=== PATIENT | male | born 1945 | race Caucasian/White ===

== ENCOUNTER 2019-09-01 07:02 | Day surgery (SDC) | payer MEDICARE, OTHER, SELFPAY ==
--- NOTE | 2019-08-31 19:34 | PM.PREOP ---
Pre-operative Note Interval Note History & Physical reviewed/Exam performed by Physician: Yes Changes to H&P: No
--- NOTE | 2019-09-01 07:19 | PM.OP.1 ---
Operative Date/Time/Diagnoses Date of procedure: 09/01/19 Time of procedure: 07:45 Procedure & Clinicians Procedure: Preoperative diagnoses: 1. Left nuclear sclerotic cataract 2. Astigmatism which is to be corrected with a toric intraocular lens implant. 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 4. Hypertension. 5. Epiretinal membrane. Postoperative diagnoses: 1. Cataract removal with phacoemulsification with toric posterior chamber intraocular lens implant placed. Procedure: Phacoemulsification with posterior chamber toric intraocular lens implant. Surgeon: Daniela Traylor MD Complications: None Specimen: None Implant: [id number] [place] 176 Blood loss: None Anesthesia: Retrobulbar with monitored standby Description of procedure: Patient presents with a complaint of decreased vision due to cataract which is affecting activities of daily living especially driving. The patient wants surgery to improve vision and astigmatism. He is higher risk due to the previous scleritis with oral prednisone for some sometimes several years ago. The patient was taken to the operating room and proparacaine drops placed. Indelible ink rogers were placed at the 90 and 180 degree meridian. The patient was placed on the operating room table and given IV sedation. A retrobulbar block insert consisting of 6 cc of 2% xylocaine without epinephrine mixed half and half with 0.5% Marcaine with 1 cc of hyaluronidase added is placed between the medial and lateral 1/3 of the inferior orbital rim. The eye is manually massaged for 30 sec, prepped using Betadine solution, and draped in the usual sterile fashion. Temporal approach was made, a 1 mm side-port incision was made 90? from the proposed corneal wound. Phenylephrine 1.5% mixed with 1% xylocaine 0.2 cc was placed into the anterior chamber. Viscoat followed by Camelia was then placed. A 2.6 mm clear incision with a 2.6 mm blade was placed at the 170 degree meridian. A 360 degree capsulorrhexis style capsulotomy was then performed with a cystitome needle on a [place]. Hydrodelineation and hydrodissection were performed. The phacoemulsification unit is introduced, and sculpting used to groove the central lens. It is then removed in chopping mode. Epi nucleus is removed with epinuclear mode and irrigation aspiration was used to remove the peripheral cortex. The posterior capsule is polished. The intraocular lens is selected, inspected, power confirmed, and placed in the posterior chamber at the desired meridian of 176 degrees. The pupil was not constricted. The wound was stromally hydrated and tested for leaks, there was none and it was left sutureless. Vigamox 0.1 cc was placed into the anterior chamber. Kenalog 0.2 cc was placed in the superior subconjunctival space. A drop of antibiotic and was placed and the eye was patched and shielded. The patient was stable and returned to the recovery room in excellent condition. Dictated by: Daniela Traylor MD Copy to: [facility]
[2019-09-01] MEDS: PROPARACAINE 0.5% OPHTH SOL 2 DROPS EYE-OP (07:21)
[2019-09-01] MEDS: CATARACT EYE COMPOUND (10 DROPS/SYRINGE) 3 DROPS EYE-OP ×6 (07:23→07:56)
[2019-09-01 07:28] VITALS: BP 159/88; PULSE 53; RESP 15; TEMP 36; O2SAT 94; BMI 29.7
[2019-09-01] MEDS: ERYTHROMYCIN OPHTH 1 GM OINT 1 APPLIC EYE-LEFT (08:35)
[2019-09-01] MEDS: MOXIFLOXACIN 0.5% OPHTH 60 DROPS/BOTTLE DROPS EYE-BOTH (08:35)
[2019-09-01] MEDS: PHENYLEPHRINE/LIDOCAINE VIAL (OR) 0.2 ML EYE-OP (08:35)
[2019-09-01] MEDS: HYALURONATE SODIUM 10 MG/ML SYRINGE INJ (08:35)
[2019-09-01] MEDS: LIDOCAINE 2% 4 ML, BUPIVACAINE 0.5% (PF) 4 ML, HYALURONIDASE 150 UNIT INJ (08:36)
[2019-09-01] MEDS: TRIAMCINOLONE 50 MG/5 ML VIAL INJ (08:36)
[2019-09-01 09:00] VITALS: BP 111/69; PULSE 63; RESP 16; TEMP 36.6; O2SAT 96
--- NOTE | 2019-09-01 09:25 | SUR.PHASEII ---
Discharge note: Patient arrived via w/c to [facility]. VSS, O2 sat WNL on RA. No complaints of pain. IV dc'd, Discharge instructions reviewed with patient and with good understanding. Patient instructed to take his beta marcelle medication as recommended by Dr. Alston post op. Discharged to home, w/c to car with at 0921.
[2019-09-01] MEDS: BALANCED SALT IRRIG SOLN NO.2 500 ML, EPINEPHrine 1 MG IRR (09:41)
[2019-09-01] MEDS: CHONDROIDTIN/SOD HYALURONATE 1.05 ML SYRINGE INTRAOCULA (09:42)
== END 2019-09-01 09:21 | disposition home or self-care (01) ==
PROVIDERS: Visit Provider Ophthalmology
PROC: (CPT 66984; principal; 2019-09-01 07:45)
DX: H25.12 Age-related nuclear cataract, left eye (principal); H52.202 Unspecified astigmatism, left eye; I10 Essential (primary) hypertension
CPT/HCPCS: 66984; J0171; J2250; J2704; J3010; J3301; J3470; V2787